=== PATIENT | female | born 1990 | race African-American/Black ===

== ENCOUNTER 2020-08-03 18:06 | Emergency (ER) | payer BC ==
[~2020-08-03 18:06] MED LIST: BACTRIM DS1 TAB PO; CALNA PO; CEPHALEXIN500 MG PO; CIPRO500 MG PO; FLEXERIL5 M1 PO; IRON325 M1 PO; LORTAB 7.57.5 MG PO; LORTAB5 OR; LORTAB5 PO; MACRODANTIN100 MG PO; NAPROSYN500 MG PO; NO; NO HOME MEDS; ONDANSETRON4 MG PO; PENICILLN VK500 M1 OR; ULTRAM50 MG OR; ZOFRAN4 M1 PO
[2020-08-03 19:42] VITALS: BP 118/72
== END 2020-08-03 19:45 | disposition home or self-care (01) | DRG 866 ==
LOC: ED 18:06
DX: B34.9 Viral infection, unspecified (principal); Z20.822 Contact with and (suspected) exposure to COVID-19

== ENCOUNTER 2023-06-02 09:35 | Emergency (ER) | payer BC ==
[~2023-06-02] VITALS: Ht 180.3 cm; Wt 90.7 kg
[2023-06-02] VITALS (12 sets, daily range): BP systolic 114–131; BP diastolic 70–97
[2023-06-02] MEDS ORDERED: DEPO-PROVER150 MG/M1 IM (09:56)
[2023-06-02] MEDS ORDERED: IBUPROFEN 800 MG/TAB PO ONE (10:05)
[2023-06-02] MEDS ORDERED: GUAIFENESIN 600 MG/TAB PO ONE (10:05)
[2023-06-02] MEDS ORDERED: CLARITIN-D1 TAB PO (12:18)
[2023-06-02] MEDS ORDERED: NASACORT A55 MCG/ACT (12:18)
== END 2023-06-02 12:27 | disposition home or self-care (01) | DRG 866 ==
LOC: ED 09:35
DX: B34.9 Viral infection, unspecified (principal); J32.9 Chronic sinusitis, unspecified; Z20.822 Contact with and (suspected) exposure to COVID-19